=== PATIENT | female | born 1985 | race American Indian/Alaskan Native ===

== ENCOUNTER 2016-08-03 21:40 | Outpatient (CLI) | payer MEDICAID ==
[2016-08-03 22:05] VITALS: BP 123/69
== END 2016-08-03 23:03 | disposition home or self-care (01) ==
LOC: TRG 21:40
PROVIDERS: ATTEND Obstetrics & Gynecology
DX: O77.9 Labor and delivery complicated by fetal stress, unspecified (principal); O47.9 False labor, unspecified; Z3A.00 Weeks of gestation of pregnancy not specified

== ENCOUNTER 2017-07-15 15:35 | Emergency (ER) | payer MEDICAID | END 2017-07-15 15:36 | disposition left against medical advice (07) | LOC: ED 15:35 | DX: R53.83 Other fatigue (principal); Z53.21 Procedure and treatment not carried out due to patient leaving prior to being seen by health care provider ==

== ENCOUNTER 2017-09-24 15:26 | Emergency (ER) | payer MEDICAID ==
[2017-09-24 15:45] VITALS: BP 138/78
== END 2017-09-24 17:45 | disposition left against medical advice (07) ==
LOC: ED 15:26
DX: R07.9 Chest pain, unspecified (principal); Z53.21 Procedure and treatment not carried out due to patient leaving prior to being seen by health care provider
CPT/HCPCS: 93005; 93010